=== PATIENT | female | born 1995 | race Caucasian/White ===

== ENCOUNTER 2024-12-09 07:30 | Day surgery (SDC) | payer BC, OTHER ==
[2024-12-09] MEDS ORDERED: Sodium Chloride 0.9% 100 ML IV ONE (07:31)
[2024-12-09] MEDS ORDERED: Lactated Ringers 1,000 ML IV ONE (07:31)
[2024-12-09 08:16] LABS: BASOPHILS PERCENT AUTO 0.2 % (0.0-1.0); EOSINOPHILS ABSOLUTE AUTO 0.2 K/mm3 (0.0-0.4); HEMATOCRIT 42.9 % (37.0-47.0); HEMOGLOBIN 14.3 gm/dl (12.0-16.0); IMMATURE GRAN ABSOLUTE AUTO 0.03 K/mm3 (0.00-0.05); IMMATURE GRAN PERCENT AUTO 0.3 % (0.0-0.4); LYMPHOCYTES ABSOLUTE AUTO 3.1 K/mm3 (1.0-4.8); LYMPHOCYTES PERCENT AUTO 30.4 % (24.0-44.0); MEAN CORPUSCULAR HEMOGLOBIN 28.7 pg (28.0-32.0); MEAN CORPUSCULAR HGB CONC 33.3 g/dl (32.0-36.0); MEAN CORPUSCULAR VOLUME 86.1 fl (83.0-99.0); MEAN PLATELET VOLUME 11.4 fl (9.4-12.3); MONOCYTES ABSOLUTE AUTO 0.5 K/mm3 (0.0-0.8); MONOCYTES PERCENT AUTO 4.8 % (0.0-8.0); NEUTROPHILS ABSOLUTE AUTO 6.3 K/mm3 (1.8-7.7); NEUTROPHILS PERCENT AUTO 62.3 % (41.0-71.0); PLATELET COUNT,PLT 241 K/mm3 (150-400); RED BLOOD CELL COUNT 4.98 M/mm3 (4.10-5.30); WHITE BLOOD CELL COUNT,WBC 10.17 K/mm3 (3.9-11.3)
[2024-12-09 08:49] LABS: A/G RATIO 0.9 (1-2); ALANINE AMINOTRANSFERASE,ALT 28 U/L (14-59); ALBUMIN 3.9 g/dl (3.4-5.0); ALKALINE PHOSPHATASE 106 U/L (46-116); ANION GAP 16.9 (5-15); ASPARTATE AMNIOTRANSFERASE,AST 17 U/L (15-37); BILIRUBIN TOTAL 0.5 mg/dL (0.2-1.0); BLOOD UREA NITROGEN,BUN 14 mg/dL (7-18); CALCIUM 9.2 mg/dL (8.5-10.1); CARBON DIOXIDE,CO2 24 mEq/L (21-32); CHLORIDE,CL 100 mEq/L (98-107); ESTIMATED GFR 77 mL/min (>60); GLUCOSE RANDOM 93 mg/dL (70-99); POTASSIUM,K 3.9 mEq/L (3.5-5.1); PROTEIN TOTAL,TP 8.2 g/dl (6.4-8.2); SODIUM,NA 137 mEq/L (136-145)
[2024-12-09] MEDS ORDERED: Ondansetron 4 MG/2 ML SDV IVPUSH PRN (09:20)
[2024-12-09] MEDS ORDERED: fentaNYL 100 MCG/2 ML SDV IVPUSH PRN (09:20)
[2024-12-09] MEDS ORDERED: Sodium Chloride 0.9% 10 ML Syringe FLUSH PRN (09:20)
[2024-12-09] MEDS ORDERED: HYDROmorphone 0.5 MG/0.5 ML Syringe IVPUSH PRN (09:20)
[2024-12-09] MEDS ORDERED: Lactated Ringers 1,000 ML ONE (09:24)
[2024-12-09] MEDS ORDERED: Rocuronium 50 MG/5 ML Vial ONE (09:24)
[2024-12-09] MEDS ORDERED: Ondansetron 4 MG/2 ML SDV ONE (09:24)
[2024-12-09] MEDS ORDERED: dexmedeTOMIDine HCl 200 MCG/2 ML SDV ONE (09:24)
[2024-12-09] MEDS ORDERED: Sugammadex Sodium 200 MG/2 ML VIAL IV ONE (09:24)
[2024-12-09] MEDS ORDERED: Propofol 200 MG/20 ML SDV ONE (09:24)
[2024-12-09] MEDS ORDERED: fentaNYL 250 MCG/5 ML SDV ONE (09:24)
[2024-12-09] MEDS ORDERED: ceFAZolin 2 GM Vial ONE (09:24)
[2024-12-09] MEDS ORDERED: Midazolam 1 MG/ML 2 ML SDV ONE (09:24)
[2024-12-09] MEDS ORDERED: Lidocaine 1% 4 ML ONE (09:24)
[2024-12-09] MEDS ORDERED: Ketorolac 30 MG/ML SDV ONE (09:24)
[2024-12-09] MEDS ORDERED: Lactated Ringers 1,000 ML IV SCH (09:30)
[2024-12-09] MEDS ORDERED: Dexamethasone 4 MG/ML 5 ML MDV ONE (10:00)
[2024-12-09] MEDS ORDERED: HYDROmorphone 0.5 MG/0.5 ML Syringe ONE (10:07)
[2024-12-09] MEDS ORDERED: Glycopyrrolate 0.2 MG/ML 2 ML SDV ONE (10:15)
[2024-12-09] MEDS: Bupivacaine 0.5% 10 ML SDV ONE (11:15)
[2024-12-09] MEDS ORDERED: ePHEDrine 50 MG/ML SDV ONE (11:19)
[2024-12-09] MEDS ORDERED: Acetaminophen/oxyCODONE 325-5 MG Tab PO PRN (11:43)
[2024-12-09] MEDS: Lidocaine 1% with EPINEPHrine 1:100,000 20 ML MDV ONE (13:35)
[2024-12-09 14:05] VITALS: PULSE 49
[2024-12-09 14:06] VITALS: BP 112/69
[2024-12-09] MEDS ORDERED: Sodium Chloride 0.9% 10 ML Syringe FLUSH SCH (21:00)
== END 2024-12-09 13:43 | disposition home or self-care (01) ==
LOC: JD.SDS 07:30
PROVIDERS: ATTEND Obstetrics & Gynecology
DX: N92.0 Excessive and frequent menstruation with regular cycle (principal); N83.8 Other noninflammatory disorders of ovary, fallopian tube and broad ligament; N82.0 Vesicovaginal fistula
CPT/HCPCS: 36415; 58552; 80053; 81025; 85025; 86850; 86900; 86901; J0665; J0690; J1100; J1596; J1885; J2003; J2004; J2250; J2405; J2704; J3010; J7120; 00944; J3490